=== PATIENT | female | born 1965 | race African-American/Black ===

== ENCOUNTER 2019-09-18 08:47 | Outpatient (CLI) | payer MEDICARE, SELFPAY | END 2019-09-18 08:48 | disposition home or self-care (01) | LOC: ANHAUDIO 08:50 | PROVIDERS: Visit Provider Otolaryngology | DX: H90.3 Sensorineural hearing loss, bilateral (principal) | CPT/HCPCS: 92557; 92567 ==

== ENCOUNTER → 2022-06-21 07:32 | Outpatient (CLI) | payer MEDICARE, MEDICAID, SELFPAY ==
--- NOTE | ~2022-06-21 | MR_ITS ---
MRI of the lumbar spine Clinical History: Back pain Technique: Axial T2-weighted images, and sagittal T1-weighted, T2-weighted, and T2 fat-sat images wer e acquired. Findings: There is no fracture or subluxation of the lumbar spine. Vertebral bodies maintain normal h eight and alignment. No suspicious bone marrow signal abnormality seen. At L1-L2, there is no disc bulge or herniation. There is no spinal canal stenosis or neural foraminal narrowing. At L2-L3, there is no disc bulge or herniation. There is minimal facet joint hypertrophy. No spinal c anal stenosis or neural foraminal narrowing. At L3-L4, there is minimal disc bulge with facet arthropathy. There is no spinal canal stenosis. Ther e is mild right neural foraminal narrowing. Left neural foramen preserved. At L4-L5, there is mild diffuse disc bulge with facet arthropathy. No spinal canal stenosis. There is mild right neural foraminal narrowing. Left neural foramen preserved. At L5-S1, there is diffuse disc bulge with mild facet arthropathy. No spinal canal stenosis. There is moderate to severe bilateral neural foraminal narrowing. Paravertebral soft tissues are unremarkable. Impression: Degenerative spondylosis with multilevel neural foraminal narrowing, as detailed above, worst at L5-S 1. Reviewed, dictated and finalized at location . OUT WAITRESS Impression: Degenerative spondylosis with multilevel neural foraminal narrowing, as detaile d above, worst at L5-S1.
== END ==
PROVIDERS: PCP Internal Medicine; Visit Provider Internal Medicine Rheumatology
DX: M47.896 Other spondylosis, lumbar region (principal)
CPT/HCPCS: 72148